=== PATIENT | female | born 1990 | race Caucasian/White ===

== ENCOUNTER 2018-03-20 18:00 | Observation (INO) | payer OTHER ==
[2018-03-20 18:29] LABS: URINE APPEARANCE Slightly; URINE BILIRUBIN 3+ (NEGATIVE); URINE COLOR Red; URINE GLUCOSE (UA) Negative (NEGATIVE); URINE KETONE 4+ (NEGATIVE); URINE LEUK ESTERASE Negative (NEGATIVE); URINE NITRITE Negative (NEGATIVE); URINE PROTEIN 2+ (NEGATIVE)
[2018-03-20 18:37] LABS: HCG,QUALITATIVE URINE Negative
[2018-03-20 18:46] LABS: URINE RBC 0-2 /hpf (0-3)
[2018-03-20 18:47] LABS: EPI CELLS 3+ /HPF
[2018-03-20] MEDS ORDERED: SODIUM CHLORIDE 1,000 ML IV ONE (19:30)
[2018-03-20] MEDS ORDERED: KETOROLAC TROMETHAMINE 30 MG/1 ML VIAL IVPUSH ONE (19:30)
[2018-03-20] MEDS ORDERED: ONDANSETRON 4 MG/2 ML VIAL IVPB ONE (19:30)
--- NOTE | 2018-03-20 19:31 | PDOC ---
History of Present Illness - General History Source: Patient Exam Limitations: No Limitations - History of Present Illness Initial Comments: 03/20/18 19:44 The patient is a 27 year old female with a significant PMH of Crohn's disease and anxiety disorder who presents to the emergency department with complaints of nausea for about 1 week. The patient also reports some lower abdominal pain and discomfort with her nausea. She states that she is unable to keep any liquid or solid foods down. She also reports some associated fevers ( highest of 102 3 days ago, measured at home). The patient states that her symptoms are similar to her Crohn's flare up in terms of pain but not her nausea and vomiting. She reports that her menstrual period is usually irregular and her lmp was september 2015. She's states that her last Crohn's flare up was 2015 as well. The patient denies any other symptoms. She denies any chills, diarrhea, constipation or urinary symptoms. She denies any chest pain, shortness of breath , headache or dizziness. The patient denies any other complaints. PAST MEDICAL HISTORY: Crohn's disease, anxiety disorder. PAST SURGICAL HISTORY: no significant history FAMILY HISTORY: no pertinent history SOCIAL HISTORY: Pt lives with family and is employed. MEDICATIONS: lexapro (40mg), Xanax (every 6 hours), Zofran (for anxiety) ALLERGIES: As per nursing notes General: (+)fever. No chills, no weakness, no weight loss HEENT: No change in vision. No sore throat,. No ear pain CardioVascular: No chest pain or shortness of breath Respiratory:No cough, or wheezing. Gastrointestinal: (+)nausea, vomiting, abdominal pain. no diarrhea or constipation, No rectal bleeding Genitourinary: No dysuria, hematuria, or frequency Musculoskeletal: No joint or muscle pain or swelling Neurologic: No headache, vertigo, dizziness or loss of consciousness Psychiatric: nor depression Skin: No rashes or easy bruising Endocrine: no increased thirst or abnormal weight change Allergic: no skin or latex allergy All other systems reviewed and normal General: Well-nourished well-developed individual, no acute distress HEENT: Throat: Normal, tonsils normal, no erythema or exudate Neck: Supple, no meningeal signs, no lymphadenopathy Eyes::Pupils equal reactive and round, extraocular motion intact Chest: Nontender to palpation Cardiac: S1-S2 normal, regular rate and rhythm, no murmurs rubs or gallops Respiratory: Lungs clear to auscultation bilateral Abdomen: (+)tender to palpation to RUQ, questionable mild rebound. No guarding. nondistended, normal bowel sounds. Extremities: Warm, dry, no cyanosis, clubbing, or edema Skin: No rashes Neuro: Alert and oriented x3, nonfocal exam, grossly intact, normal gait Psych: Normal mood and affect Documentation prepared by Nita Gatica, acting as medical staff manager for Aubrey Corado MD. 03/20/18 19:59 <Nita Gatica - Last Filed: 03/20/18 19:59> - General History Source: Patient Exam Limitations: No Limitations - History of Present Illness Initial Comments: 03/20/18 20:00 A portion of this note was documented by scribe services under my direction. I have reviewed the details of the note, within reason, and agree with the documentation. The case summary and management plan written by me. Medical decision making: This is a 27-year-old female who comes in complaining of upper abdominal pain, fever 3 days ago, nausea vomiting and dehydration. Patient has history significant for Crohn's disease, on my exam patient is tender right upper quadrant. Well obtain workup to rule out gallstones, CBC, comp, lipase, gallbladder ultrasound ordered and patient medicated with Zofran, Toradol and given IV fluids 03/20/18 22:11 Patient's ultrasound was negative for any acute gallbladder pathology Patient continues to be able to not tolerate by mouth's and feels nauseous in spite of Zofran and Reglan. Patient M enzymes are moderately elevated. Will admit patient to a observation bed for hepatitis. <Aubrey Corado I - Last Filed: 03/20/18 22:21> - General Chief Complaint: Nausea/Vomiting Stated Complaint: N/V/ PAIN Time Seen by Provider: 03/20/18 19:18 Past History <Nita Gatica - Last Filed: 03/20/18 19:59> - Past Medical History Anemia: No Asthma: No Cancer: No Cardiac Disorders: No CVA: No COPD: No CHF: No Dementia: No Diabetes: No GI Disorders: Yes (CROHNS, NAUSEA, GASTRIC POLYP) Disorders: No HTN: No Hypercholesterolemia: No Liver Disease: No Psychiatric Problems: Yes (ANXIETY,PANIC D/O, DEPRESSION, ANXIETY) Seizures: No Thyroid Disease: No - Surgical History Abdominal Surgery: Yes (abdominal wall cyst removed) Appendectomy: No Cardiac Surgery: No Cholecystectomy: No Lung Surgery: No Neurologic Surgery: No Orthopedic Surgery: No - Immunization History Immunization Up to Date: Yes - Suicide/Smoking/Psychosocial Hx Smoking Status: No Smoking History: Never smoked Have you smoked in the past 12 months: No Number of Cigarettes Smoked Daily: 0 Hx Alcohol Use: No Drug/Substance Use Hx: No Substance Use Type: None Hx Substance Use Treatment: No <Aubrey Corado I - Last Filed: 03/20/18 22:21> - Past Medical History Allergies/Adverse Reactions: Allergies Allergy/AdvReac Type Severity Reaction Status Date / Time nortriptyline [Nortriptyline] AdvReac Intermediate Verified 03/20/18 18:02 diphenhydramine HCl AdvReac Verified 03/20/18 18:02 [From [facility]] Home Medications: Ambulatory Orders Aspirin [ASA -] 81 mg PO DAILY 03/20/18 Bupropion HCl [Wellbutrin -] 300 mg PO DAILY 03/20/18 Levothyroxine Sodium [Synthroid] 112 mcg PO DAILY 03/20/18 Metoprolol Tartrate 50 mg PO DAILY 03/20/18 Metoprolol Tartrate 100 mg PO DAILY 03/20/18 Abd/GI Specific PMHX - Complaint Specific PMHX Colitis: Yes Diverticulitis: No Gall Bladder Disease: No GERD: Yes Hepatitis: No Irritable Bowel Synd (IBS): Yes GI Ulcer Disease: Yes <Aubrey Corado I - Last Filed: 03/20/18 22:21> *Physical Exam - Vital Signs Last Vital Signs Temp Pulse Resp BP Pulse Ox 99.1 F 128 H 18 112/73 98 03/20/18 18:02 03/20/18 18:02 03/20/18 18:02 03/20/18 18:02 03/20/18 18:02 <Nita Gatica - Last Filed: 03/20/18 19:59> - Vital Signs Last Vital Signs Temp Pulse Resp BP Pulse Ox 99.1 F 128 H 18 112/73 98 03/20/18 18:02 03/20/18 18:02 03/20/18 18:02 03/20/18 18:02 03/20/18 18:02 <Aubrey Corado I - Last Filed: 03/20/18 22:21> ED Treatment Course - LABORATORY CBC & Chemistry Diagram: 03/20/18 19:44 - ADDITIONAL ORDERS Additional order review: Laboratory Results 03/20/18 18:27 Urine Color Red Urine Appearance Slightly Urine pH 6.0 Ur Specific [place] >= 1.030 Urine Protein 2+ H Urine Glucose (UA) Negative Urine Ketones 4+ H Urine Blood Negative Urine Nitrite Negative Urine Bilirubin 3+ H Urine Urobilinogen 2.0 H Ur Leukocyte Esterase Negative Urine RBC 0-2 Urine WBC 2-5 Ur Epithelial Cells 3+ Urine HCG, Qual Negative <Nita Gatica - Last Filed: 03/20/18 19:59> - LABORATORY CBC & Chemistry Diagram: 03/20/18 19:44 03/20/18 19:44 - ADDITIONAL ORDERS Additional order review: Laboratory Results 03/20/18 18:27 Urine Color Red Urine Appearance Slightly Urine pH 6.0 Ur Specific [place] >= 1.030 Urine Protein 2+ H Urine Glucose (UA) Negative Urine Ketones 4+ H Urine Blood Negative Urine Nitrite Negative Urine Bilirubin 3+ H Urine Urobilinogen 2.0 H Ur Leukocyte Esterase Negative Urine RBC 0-2 Urine WBC 2-5 Ur Epithelial Cells 3+ Urine HCG, Qual Negative <Aubrey Corado I - Last Filed: 03/20/18 22:21> *DC/Admit/Observation/Transfer <Nita Gatica - Last Filed: 03/20/18 19:59> - Discharge Dispostion Decision to Admit order: Yes <Aubrey Corado I - Last Filed: 03/20/18 22:21> Diagnosis at time of Disposition: Hepatitis - Discharge Dispostion Condition at time of disposition: Stable
[2018-03-20] MEDS ORDERED: KETOROLAC TROMETHAMINE 30 MG/1 ML VIAL ONE (19:46)
[2018-03-20] MEDS ORDERED: ONDANSETRON 4 MG/2 ML VIAL ONE (19:46)
[2018-03-20 20:02] LABS: HEMATOCRIT 44.5 % (32.4-45.2); HEMOGLOBIN 14.9 GM/dl (10.7-15.3); MCH 28.8 pg (25.7-33.7); MCHC 33.4 g/dl (32.0-36.0); MEAN CELL VOLUME 86.2 fl (80-96); MEAN PLT VOLUME 8.6 fl (7.5-11.1); PLATELET COUNT 70 K/MM3 (134-434); RBC 5.16 M/mm3 (3.60-5.2); RDW 12.9 % (11.6-15.6); WHITE BLOOD COUNT 9.9 K/mm3 (4.0-10.8)
[2018-03-20 20:11] LABS: ALBUMIN 4.2 g/dl (3.5-5.0); ALK PHOS 281 U/L (32-92); ANION GAP 15 MMOL/L (8-16); BLOOD UREA NITROGEN 22 mg/dl (7-18); CALCIUM 8.8 mg/dl (8.4-10.2); CHLORIDE 97 mmol/L (98-107); CO2 24 mmol/L (22-28); CREATININE 0.7 mg/dl (0.6-1.3); GLUCOSE,RANDOM 85 mg/dl (74-106); POTASSIUM 3.2 mmol/L (3.5-5.1); SGOT/AST 108 U/L (10-42); SGPT/ALT 138 U/L (10-40); SODIUM 136 mmol/L (136-145); TOT PROT 8.7 g/dl (6.4-8.3)
[2018-03-20 20:55] LABS: PLATELET ESTIMATE DECREASED
[2018-03-20] MEDS ORDERED: morphine CARPU-JECT 4 MG/1 ML DISP.SYRIN IVPUSH ONE (21:27)
[2018-03-20] MEDS ORDERED: METOCLOPRAMIDE HCL INJECTION 10 MG/2 ML VIAL IVPUSH ONE (21:29)
[2018-03-20] MEDS ORDERED: morphine SULFATE 4 MG/ML VIAL ONE (21:41)
[2018-03-20 21:46] LABS: LIPASE 143 U/L (73-393)
[2018-03-21 00:10] VITALS: BMI 38.9
--- NOTE | 2018-03-21 00:23 | HP ---
CHIEF COMPLAINT: nausea, abd pain PCP: Jose HISTORY OF PRESENT ILLNESS: This is a 27 year old female with a past medical hisotyr of Crohn's disease and anxiety who presented to the ED with nausea and associated lower abdominal pain x 6 days. Pt reports that her pain is similar to her usual Crohn's flare but is not typically associated with N/V. Her last Crohn's flare was 2015. Pt reports similar episode nausea and vomiting 2 months ago with hospitalization at [facility] for a few days, but they did not find anything wrong. ER course was notable for: (1) WBC 9.9 (2) K 3.2 (3) elevated LFTs AST 108, ALT 138, alk phos 281 Recent Travel: [place] in January PAST MEDICAL HISTORY: Crohn's anxiety PCOS PAST SURGICAL HISTORY: pt denies Social History: Smoking: pt denies Alcohol: occ Drugs: pt denies Family History: mother with thyroid disease father with h/o pancreatitis, HTN, HLD sister with h/o anorexia Allergies nortriptyline [Nortriptyline] Adverse Reaction (Intermediate, Verified 03/20/18 18:02) drowsiness and weight gain diphenhydramine HCl [From Benadryl] Adverse Reaction (Verified 03/20/18 18:02) palpitations HOME MEDICATIONS: 3 Medication Instructions Recorded Alprazolam [Xanax] 1 mg PO QID 03/21/18 Escitalopram Oxalate [Lexapro -] 40 mg PO DAILY 03/21/18 Loratadine [Claritin] 10 mg PO PRN 03/21/18 Ondansetron HCl [Zofran] 4 mg PO TID PRN 03/21/18 REVIEW OF SYSTEMS CONSTITUTIONAL: Absent: fever, chills, diaphoresis, generalized weakness, malaise, loss of appetite, weight change HEENT: Absent: rhinorrhea, nasal congestion, throat pain, throat swelling, difficulty swallowing, mouth swelling, ear pain, eye pain, visual changes CARDIOVASCULAR: Absent: chest pain, syncope, palpitations, irregular heart rate, lightheadedness , peripheral edema RESPIRATORY: Absent: cough, shortness of breath, dyspnea with exertion, orthopnea, wheezing, stridor, hemoptysis GASTROINTESTINAL: Present: abdominal pain, nausea, vomiting Absent: abdominal distension, diarrhea, constipation, melena, hematochezia GENITOURINARY: Absent: dysuria, frequency, urgency, hesitancy, hematuria, flank pain, genital pain MUSCULOSKELETAL: Absent: myalgia, arthralgia, joint swelling, back pain, neck pain SKIN: Absent: rash, itching, pallor HEMATOLOGIC/IMMUNOLOGIC: Absent: easy bleeding, easy bruising, lymphadenopathy, frequent infections ENDOCRINE: Absent: unexplained weight gain, unexplained weight loss, heat intolerance, cold intolerance NEUROLOGIC: Absent: headache, focal weakness or paresthesias, dizziness, unsteady gait, seizure, mental status changes, bladder or bowel incontinence PSYCHIATRIC: Absent: anxiety, depression, suicidal or homicidal ideation, hallucinations. PHYSICAL EXAMINATION Vital Signs - 24 hr 3 03/20/18 03/20/18 18:02 23:45 Temperature 99.1 F 98.0 F Pulse Rate 128 H 96 H Respiratory 18 19 Rate Blood Pressure 112/73 117/67 O2 Sat by Pulse 98 97 Oximetry (%) GENERAL: Awake, alert, and fully oriented, in no acute distress. HEAD: Normal with no signs of trauma. EYES: Pupils equal, round and reactive to light, extraocular movements intact, sclera anicteric, conjunctiva clear. No lid lag. EARS, NOSE, THROAT: Ears normal, nares patent, oropharynx clear without exudates. Moist mucous membranes. NECK: Normal range of motion, supple without lymphadenopathy, JVD, or masses. LUNGS: Breath sounds equal, clear to auscultation bilaterally. No wheezes, and no crackles. No accessory muscle use. HEART: Regular rate and rhythm, normal S1 and S2 without murmur, rub or gallop. ABDOMEN: Obese, soft, nontender, not distended, normoactive bowel sounds, no guarding, no rebound, no masses. No hepatomegaly or splenomegaly. MUSCULOSKELETAL: Normal range of motion at all joints. No bony deformities or tenderness. No CVA tenderness. UPPER EXTREMITIES: 2+ pulses, warm, well-perfused. No cyanosis. No clubbing. No peripheral edema. LOWER EXTREMITIES: 2+ pulses, warm, well-perfused. No calf tenderness. No peripheral edema. NEUROLOGICAL: Cranial nerves II-XII intact. Normal speech. Normal gait. PSYCHIATRIC: Cooperative. Good eye contact. Appropriate mood and affect. SKIN: Warm, dry, normal turgor, no rashes or lesions noted, normal capillary refill. Laboratory Results - last 24 hr 3 1003/20/18 03/20/18 18:27 19:44 19:44 WBC 9.9 RBC 5.16 Hgb 14.9 Hct 44.5 MCV 86.2 MCH 28.8 MCHC 33.4 RDW 12.9 Plt Count 70 L MPV 8.6 Absolute Neuts (auto) 3.2 Neutrophils % No Result Required. Neutrophils % (Manual) 35.0 L Lymphocytes % No Result Required. Lymphocytes % (Manual) 45.0 H Monocytes % (Manual) 8 Platelet Estimate Decreased Sodium 136 Potassium 3.2 L D Chloride 97 L Carbon Dioxide 24 Anion Gap 15 BUN 22 H Creatinine 0.7 Creat Clearance w eGFR > 60 Random Glucose 85 Calcium 8.8 Total Bilirubin 2.0 H AST 108 H D ALT 138 H D Alkaline Phosphatase 281 H Creatine Kinase 29 Troponin I 0.03 Total Protein 8.7 H Albumin 4.2 Lipase 143 Urine Color Red Urine Appearance Slightly Urine pH 6.0 Ur Specific [place] >= 1.030 Urine Protein 2+ H Urine Glucose (UA) Negative Urine Ketones 4+ H Urine Blood Negative Urine Nitrite Negative Urine Bilirubin 3+ H Urine Urobilinogen 2.0 H Ur Leukocyte Esterase Negative Urine RBC 0-2 Urine WBC 2-5 Ur Epithelial Cells 3+ Urine HCG, Qual Negative ASSESSMENT/PLAN: 27yF with PMH Crohn's, PCOS, anxiety who presented to the ED with abdominal pain , N/V. intractable N/V - pt still feeling nauseas despite receipt of zofran and metoclopramide in ED , will try phenergan IM - CT with fatty liver, no s/s Crohn's flare elevated LFTs - unclear etiology ? r/t fatty liver - repeat in am - if not improving, GI consult Crohn's - does not appear to be in flare - cont supportive care hypokalemia repleted with 20mg po, repeat at 4am, draw bmp in am Anxiety - cont home meds: lexapro, xanax DVT PPX - heparin deferred, expected LOS less than 48h FEN - tolerating sips of po, monitor off IV fluids - BMP in am - clear liquid diet in am Dispo: pt currently requires further observation for management of her emergent condition. Visit type - Emergency Visit Emergency Visit: Yes ED Registration Date: 03/20/18 Care time: The patient presented to the Emergency Department on the above date and was hospitalized for further evaluation of their emergent condition. - New Patient This patient is new to me today: Yes Date on this admission: 03/20/18 - Critical Care Critical Care patient: No
[2018-03-21] MEDS ORDERED: POTASSIUM CHLORIDE TABS 20 MEQ TABLET.ER (FP) PO ONE ×2 (00:27→06:00)
[2018-03-21] MEDS: ALPRAZolam 1 MG TABLET PO SCH ×5 (01:00→23:16)
[2018-03-21] MEDS: NYSTATIN POWDER 100,000 UNITS/GM - 15 GM TOPICAL POWDER TP SCH ×2 (02:02→09:32)
[2018-03-21 07:55] LABS: HEMOGLOBIN 12.1 GM/dl (10.7-15.3); MCH 29.1 pg (25.7-33.7); MCHC 33.5 g/dl (32.0-36.0); MEAN CELL VOLUME 86.9 fl (80-96); MEAN PLT VOLUME 8.2 fl (7.5-11.1); RBC 4.14 M/mm3 (3.60-5.2); RDW 13.1 % (11.6-15.6); WHITE BLOOD COUNT 6.7 K/mm3 (4.0-10.8)
[2018-03-21 08:16] LABS: ADD RBC MORPHOLOGY YES
--- NOTE | 2018-03-21 08:23 | PN ---
Physical Exam: SUBJECTIVE: Patient seen and examined, Patient reports nausea With decreased appetite OBJECTIVE:Patient is a 27-year-old female Past medical history of Crohn's disease and anxiety patient was admitted From the emergency department to observation for transaminitis and vomiting Vital Signs Period Temp Pulse Resp BP Sys/Peterson Pulse Ox Last 24 Hr 97.7 F-99.1 F 76-128 18-19 112-119/61-73 97-98 GENERAL: obeseThe patient is awake, alert, and fully oriented, in no acute distress. HEAD: Normal with no signs of trauma. EYES: PERRL, extraocular movements intact, sclera anicteric, conjunctiva clear. No ptosis. ENT: Ears normal, nares patent, oropharynx clear without exudates, moist mucous membranes. NECK: Trachea midline, full range of motion, supple. LUNGS: Breath sounds equal, clear to auscultation bilaterally, no wheezes, no crackles, no accessory muscle use. HEART: Regular rate and rhythm, S1, S2 without murmur, rub or gallop. ABDOMEN: Soft, Right upper quadrant tenderness, nondistended, normoactive bowel sounds, no guarding, no rebound, + hepatosplenomegaly, no masses. EXTREMITIES: 2+ pulses, warm, well-perfused, no edema. NEUROLOGICAL: Cranial nerves II through XII grossly intact. Normal speech, gait not observed. PSYCH: Normal mood, normal affect. SKIN: Warm, dry, normal turgor, no rashes or lesions noted Laboratory Results - last 24 hr 03/20/18 03/20/18 03/20/18 18:27 19:44 19:44 WBC 9.9 RBC 5.16 Hgb 14.9 Hct 44.5 MCV 86.2 MCH 28.8 MCHC 33.4 RDW 12.9 Plt Count 70 L MPV 8.6 Absolute Neuts (auto) 3.2 Neutrophils % No Result Required. Neutrophils % (Manual) 35.0 L Lymphocytes % No Result Required. Lymphocytes % (Manual) 45.0 H Monocytes % (Manual) 8 Platelet Estimate Decreased Sodium 136 Potassium 3.2 L D Chloride 97 L Carbon Dioxide 24 Anion Gap 15 BUN 22 H Creatinine 0.7 Creat Clearance w eGFR > 60 Random Glucose 85 Calcium 8.8 Total Bilirubin 2.0 H AST 108 H D ALT 138 H D Alkaline Phosphatase 281 H Creatine Kinase Troponin I Total Protein 8.7 H Albumin 4.2 Lipase 143 Urine Color Red Urine Appearance Slightly Urine pH 6.0 Ur Specific [place] >= 1.030 Urine Protein 2+ H Urine Glucose (UA) Negative Urine Ketones 4+ H Urine Blood Negative Urine Nitrite Negative Urine Bilirubin 3+ H Urine Urobilinogen 2.0 H Ur Leukocyte Esterase Negative Urine RBC 0-2 Urine WBC 2-5 Ur Epithelial Cells 3+ Urine HCG, Qual Negative 03/20/18 03/20/18 03/21/18 19:44 19:44 07:25 WBC 6.7 RBC 4.14 Hgb 12.1 Hct 36.0 D MCV 86.9 MCH 29.1 MCHC 33.5 RDW 13.1 Plt Count 44 L* MPV 8.2 Absolute Neuts (auto) 1.6 Neutrophils % No Result Required. Neutrophils % (Manual) Lymphocytes % No Result Required. Lymphocytes % (Manual) Monocytes % (Manual) Platelet Estimate Sodium Potassium Chloride Carbon Dioxide Anion Gap BUN Creatinine Creat Clearance w eGFR Random Glucose Calcium Total Bilirubin AST ALT Alkaline Phosphatase Creatine Kinase 29 Troponin I 0.03 Total Protein Albumin Lipase Urine Color Urine Appearance Urine pH Ur Specific [place] Urine Protein Urine Glucose (UA) Urine Ketones Urine Blood Urine Nitrite Urine Bilirubin Urine Urobilinogen Ur Leukocyte Esterase Urine RBC Urine WBC Ur Epithelial Cells Urine HCG, Qual Active Medications Generic Name Dose Route Start Last Admin Trade Name Freq PRN Reason Stop Dose Admin Alprazolam 1 mg 03/21/18 00:45 03/21/18 06:35 Xanax PO 1 mg Q6HPO AD Administration Escitalopram Oxalate 40 mg 03/21/18 10:00 Lexapro - PO DAILY AD Nystatin 1 applic 03/21/18 01:30 03/21/18 02:02 Nystop Powder - TP 1 applic DAILY AD Administration Promethazine HCl 25 mg 03/21/18 00:24 Phenergan Injection - IM Q6H PRN NAUSEA AND/OR VOMITING imaging Chest CT abdomen and pelvis with contrast no acute pathology, diffuse hepatic steatosis us of abd: diffuse hepatic steatosis, 0.5cm no cbd dilation ASSESSMENT/PLAN: i1) GI intractable N/V - continue phenergan IM, no evidence of Crohn's flare on the CT scan Transaminitis -liver enzymes trending downward, CT scan of abdomen and ultrasound reviewed, hepatitis panel ordered - Appreciated input of GI Crohn's - continue supportive care Anxiety - cont home meds: lexapro, xanax DVT PPX - heparin deferred, expected LOS less than 48h FEN - tolerating sips of po, monitor off IV fluids - BMP in am - clear liquid diet in am Dispo: pt currently requires further observation for management of her emergent condition. Visit type - Emergency Visit Emergency Visit: Yes ED Registration Date: 03/20/18 Care time: The patient presented to the Emergency Department on the above date and was hospitalized for further evaluation of their emergent condition. - New Patient This patient is new to me today: No - Critical Care Critical Care patient: No - Discharge Referral Referred to [facility] Med [facility].C[facility] No
[2018-03-21 08:29] LABS: ANION GAP 10 MMOL/L (8-16); BLOOD UREA NITROGEN 17 mg/dl (7-18); CALCIUM 7.9 mg/dl (8.4-10.2); CHLORIDE 107 mmol/L (98-107); CO2 24 mmol/L (22-28); GLUCOSE,RANDOM 81 mg/dl (74-106); MAGNESIUM 2.1 mg/dL (1.8-2.4); PHOSPHOROUS 2.7 mg/dl (2.5-4.6); POTASSIUM 3.5 mmol/L (3.5-5.1); SODIUM 141 mmol/L (136-145)
[2018-03-21 08:32] LABS: ALBUMIN 3.2 g/dl (3.5-5.0); BILIRUBIN,DIRECT 0.4 mg/dL (0.0-0.3); BILIRUBIN,TOTAL 1.5 mg/dl (0.2-1.0); TOT PROT 6.8 g/dl (6.4-8.3)
[2018-03-21] MEDS: PROMETHAZINE HCL 25 MG/1 ML VIAL IM PRN ×3 (08:33→21:42)
[2018-03-21 08:40] LABS: CREATININE < 0.6 mg/dl (0.6-1.3)
[2018-03-21] MEDS ORDERED: PT OWN MED DRAWER 7, Y5N ONE (09:27)
[2018-03-21] MEDS: PANTOPRAZOLE SODIUM 40 MG VIAL IVPUSH SCH (09:30)
[2018-03-21] MEDS: ESCITALOPRAM OXALATE 20 MG TABLET (FP) PO SCH (09:32)
[2018-03-21] MEDS: SODIUM CHLORIDE 0.45%/POT 20 MEQ/1,000 ML INFUS.BAG IV SCH (12:30)
[2018-03-21 13:02] LABS: PLATELET COUNT 44 K/MM3 (134-434)
[2018-03-21 13:03] LABS: PLATELET ESTIMATE DECREASED
[2018-03-21] MEDS ORDERED: traMADol HCL 50 MG TABLET PO ONE (17:00)
[2018-03-22] MEDS: ALPRAZolam 1 MG TABLET PO SCH ×4 (05:55→23:37)
[2018-03-22 08:10] LABS: HBSAG SCREEN Negative (Negative); HEP B CORE AB, TOT Negative (Negative)
[2018-03-22 08:24] LABS: BASO % 0.1 % (0-2.0); EOS % 0.3 % (0-4.5); HEMATOCRIT 37.1 % (32.4-45.2); HEMOGLOBIN 12.3 GM/dl (10.7-15.3); LYMPH % 59.8 % (8-40); MCH 28.7 pg (25.7-33.7); MCHC 33.1 g/dl (32.0-36.0); MEAN CELL VOLUME 86.8 fl (80-96); MEAN PLT VOLUME 8.4 fl (7.5-11.1); MONO % 17.4 % (3.8-10.2); NEUT % 22.4 % (42.8-82.8); PLATELET COUNT 59 K/MM3 (134-434); RBC 4.28 M/mm3 (3.60-5.2); RDW 13.3 % (11.6-15.6); WHITE BLOOD COUNT 8.5 K/mm3 (4.0-10.8)
[2018-03-22 08:37] LABS: ALBUMIN 3.4 g/dl (3.5-5.0); ALK PHOS 221 U/L (32-92); ANION GAP 7 MMOL/L (8-16); BILIRUBIN,TOTAL 1.6 mg/dl (0.2-1.0); BLOOD UREA NITROGEN 12 mg/dl (7-18); CHLORIDE 105 mmol/L (98-107); CO2 25 mmol/L (22-28); CREATININE 0.6 mg/dl (0.6-1.3); GLUCOSE,RANDOM 83 mg/dl (74-106); MAGNESIUM 1.9 mg/dL (1.8-2.4); PHOSPHOROUS 1.7 mg/dl (2.5-4.6); POTASSIUM 3.8 mmol/L (3.5-5.1); SGOT/AST 83 U/L (10-42); SGPT/ALT 104 U/L (10-40); SODIUM 137 mmol/L (136-145); TOT PROT 7.1 g/dl (6.4-8.3)
[2018-03-22] MEDS ORDERED: MAGNESIUM SULF 50% (8.12 MEQ/2 ML-1 GM VIAL) IVPB ONE (08:43)
[2018-03-22] MEDS ORDERED: POTASSIUM PHOSPHATE 21 MM in SODIUM CHLORIDE 250 ML IVPB ONE (08:45)
--- NOTE | 2018-03-22 09:02 | PN ---
Physical Exam: SUBJECTIVE: Patient seen and examined, not tolerating clear liquids reports nausea after drinking apple juice OBJECTIVE:Patient is a 27-year-old female Past medical history of Crohn's disease and anxiety patient was admitted From the emergency department to observation for transaminitis, thrombocytopenia, and vomiting Vital Signs Period Temp Pulse Resp BP Sys/Peterson Pulse Ox Last 24 Hr 98.2 F-98.9 F 89-101 16-18 113-121/60-68 95-98 GENERAL: obese, the patient is awake, alert, and fully oriented, in no acute distress. HEAD: Normal with no signs of trauma. EYES: PERRL, extraocular movements intact, sclera anicteric, conjunctiva clear. No ptosis. ENT: Ears normal, nares patent, oropharynx clear without exudates, moist mucous membranes. NECK: Trachea midline, full range of motion, supple. LUNGS: Breath sounds equal, clear to auscultation bilaterally, no wheezes, no crackles, no accessory muscle use. HEART: Regular rate and rhythm, S1, S2 without murmur, rub or gallop. ABDOMEN: Soft, no rebound tenderness, nondistended, normoactive bowel sounds, no guarding, no rebound, mild hepatosplenomegaly, no masses. EXTREMITIES: 2+ pulses, warm, well-perfused, no edema. NEUROLOGICAL: Cranial nerves II through XII grossly intact. Normal speech, gait not observed. PSYCH: Normal mood, normal affect. SKIN: Warm, dry, normal turgor, no rashes or lesions noted Laboratory Results - last 24 hr 03/21/18 03/21/18 03/22/18 07:25 12:35 08:00 WBC 8.5 RBC 4.28 Hgb 12.3 Hct 37.1 MCV 86.8 MCH 28.7 MCHC 33.1 RDW 13.3 Plt Count 44 L* 59 L MPV 8.4 Absolute Neuts (auto) 1.9 Neutrophils % 22.4 L Neutrophils % (Manual) 30.0 L Lymphocytes % 59.8 H Lymphocytes % (Manual) 57.0 H Monocytes % 17.4 H Monocytes % (Manual) 8 Eosinophils % 0.3 Basophils % 0.1 Platelet Estimate Decreased Sodium Potassium Chloride Carbon Dioxide Anion Gap BUN Creatinine Creat Clearance w eGFR Random Glucose Calcium Phosphorus Magnesium Total Bilirubin AST ALT Alkaline Phosphatase Total Protein Albumin Hepatitis A Ab Total Negative Hep Bs Antigen Negative Hep Bs Antibody Reactive Hep B Core Total Ab Negative 03/22/18 08:00 WBC RBC Hgb Hct MCV MCH MCHC RDW Plt Count MPV Absolute Neuts (auto) Neutrophils % Neutrophils % (Manual) Lymphocytes % Lymphocytes % (Manual) Monocytes % Monocytes % (Manual) Eosinophils % Basophils % Platelet Estimate Sodium 137 Potassium 3.8 Chloride 105 Carbon Dioxide 25 Anion Gap 7 L BUN 12 Creatinine 0.6 Creat Clearance w eGFR > 60 Random Glucose 83 Calcium 8.0 L Phosphorus 1.7 L D Magnesium 1.9 Total Bilirubin 1.6 H AST 83 H ALT 104 H Alkaline Phosphatase 221 H D Total Protein 7.1 Albumin 3.4 L Hepatitis A Ab Total Hep Bs Antigen Hep Bs Antibody Hep B Core Total Ab Active Medications Generic Name Dose Route Start Last Admin Trade Name Freq PRN Reason Stop Dose Admin Alprazolam 1 mg 03/21/18 00:45 03/22/18 05:55 Xanax PO 1 mg Q6HPO AD Administration Escitalopram Oxalate 40 mg 03/21/18 10:00 03/21/18 09:32 Lexapro - PO 40 mg DAILY AD Administration Potassium Chloride/Sodium Chloride 20 meq in 1,000 mls @ 83 mls/hr 03/21/18 12 :30 03/21/18 12:30 1/2ns+20meq Kcl IV 83 mls/hr ASDIR AD Administration Potassium Phosphate 21 mm/ 257 mls @ 62.5 mls/hr 03/22/18 08:45 Sodium Chloride IVPB 03/22/18 12:51 ONCE ONE Magnesium Sulfate/Dextrose 1 gm in 100 mls @ 100 mls/hr 03/22/18 09:30 Magnesium 1gm/D5w - IVPB 03/22/18 10:29 ONCE ONE Nystatin 1 applic 03/21/18 01:30 03/21/18 09:32 Nystop Powder - TP 1 applic DAILY AD Administration Pantoprazole Sodium 40 mg 03/21/18 10:00 03/21/18 09:30 Protonix Iv IVPUSH 40 mg DAILY AD Administration Promethazine HCl 25 mg 03/21/18 00:24 03/21/18 21:42 Phenergan Injection - IM 25 mg Q6H PRN Administration NAUSEA AND/OR VOMITING imaging Chest CT abdomen and pelvis with contrast no acute pathology, diffuse hepatic steatosis us of abd: diffuse hepatic steatosis, 0.5cm no cbd dilation ASSESSMENT/PLAN: i1) GI intractable N/V - continue phenergan IM, continue clear liquid diet, no evidence of Crohn's flare on the CT scan Transaminitis - slight elevation of liver enzymes, pending complete hepatitis panel, asif bar virus - Appreciated input of GI Crohn's - continue supportive care 2) psych Anxiety - cont home meds: lexapro, xanax 3) heme/onc thrombocytopenia - plts trending upward, close following DVT PPX - deferred secondary to thrombocytopenia FEN - BMP in am - continue clear liquid then advance as tolerated Dispo: pt currently requires further observation for management of her emergent condition. Visit type - Emergency Visit Emergency Visit: Yes ED Registration Date: 03/24/18 Care time: The patient presented to the Emergency Department on the above date and was hospitalized for further evaluation of their emergent condition. - New Patient This patient is new to me today: No - Critical Care Critical Care patient: No - Discharge Referral Referred to [facility] Med P.C.: No
[2018-03-22] MEDS: PROMETHAZINE HCL 25 MG/1 ML VIAL IM PRN ×2 (09:11→14:26)
[2018-03-22] MEDS: PANTOPRAZOLE SODIUM 40 MG VIAL IVPUSH SCH (09:11)
[2018-03-22] MEDS: ESCITALOPRAM OXALATE 20 MG TABLET (FP) PO SCH (09:12)
[2018-03-22] MEDS ORDERED: MAGNESIUM 1GM/D5W - 1 GM/100 ML IVPB IVPB ONE (09:30)
[2018-03-22] MEDS: NYSTATIN POWDER 100,000 UNITS/GM - 15 GM TOPICAL POWDER TP SCH (09:39)
[2018-03-22 10:35] LABS: AMYLASE 53 U/L (25-125); GAMMA GLUTAMYL TRANSPEPTIDASE 251 U/L (3-64)
[2018-03-22 12:30] LABS: LIPASE 232 U/L (73-393)
--- NOTE | 2018-03-22 12:35 | PN ---
Progress Note (short form) - Note Progress Note: Patient seen and consult dictated. 27 yo female with hx of anxiety, depression and ?? hx Crohn's disease. Admitted with N/V (similar to episode 2-3 months ago), Has no evidence of obstruction on CT scan and no evidence of gallstones/biliary obstruction. Does have abnormal LFTs ?acute vs chronic (?hx fatty liver disease) and low platelet count. Feels better today and is tolerating clear liquid diet, Normal WBC, Hgb and lytes. May have viral syndrome; less likely acute hepatitis. Could have steatohepatitis/fatty liver. Etiology of low platelet count unclear - has enlarged spleen on scan Consider Heme eval Obtain EBV titers PO as tolerated IBD panel Fecal calprotectin level (eval for ??Crohn's) INR (serum) If tolerating PO, can discharge with outpatient followup
[2018-03-22] MEDS: ACETAMINOPHEN 325 MG TABLET (FP) PO PRN (14:26)
[2018-03-22] MEDS: SODIUM CHLORIDE 0.45%/POT 20 MEQ/1,000 ML INFUS.BAG IV SCH ×2 (14:27→16:00)
[2018-03-23] MEDS: ALPRAZolam 1 MG TABLET PO SCH ×4 (05:46→23:26)
[2018-03-23] MEDS: ACETAMINOPHEN 325 MG TABLET (FP) PO PRN ×2 (06:32→17:09)
[2018-03-23] MEDS: PROMETHAZINE HCL 25 MG/1 ML VIAL IM PRN ×2 (06:37→17:08)
--- NOTE | 2018-03-23 08:50 | PN ---
Physical Exam: SUBJECTIVE: Patient seen and examined. Pt c/o intermittent RUQ/ lower abdominal pain, nausea and diarrhea x1, no hematochezia, no vomiting, cp,sob, palpitations or urinary symptoms. OBJECTIVE: Vital Signs Period Temp Pulse Resp BP Sys/Peterson Pulse Ox Last 24 Hr 98.1 F-100.4 F 58-109 17-19 99-125/50-77 94-98 GENERAL: The patient is awake, alert, and fully oriented, in no acute distress. HEAD: Normal with no signs of trauma. EYES: PERRL, extraocular movements intact, sclera anicteric, conjunctiva clear. No ptosis. ENT: Ears normal, nares patent, oropharynx clear without exudates, moist mucous membranes. NECK: Trachea midline, full range of motion, supple. LUNGS: Breath sounds equal, clear to auscultation bilaterally, no wheezes, no crackles, no accessory muscle use. HEART: Regular rate and rhythm, S1, S2 without murmur, rub or gallop. ABDOMEN: Soft, nontender, nondistended, normoactive bowel sounds, no guarding, no rebound, no hepatosplenomegaly, no masses. EXTREMITIES: 2+ pulses, warm, well-perfused, no edema. NEUROLOGICAL: Cranial nerves II through XII grossly intact. Normal speech, gait not observed. PSYCH: Normal mood, normal affect. SKIN: Warm, dry, normal turgor, no rashes or lesions noted Laboratory Results - last 24 hr 03/22/18 10:07 GGT 251 H Total Amylase 53 Lipase 232 Active Medications Generic Name Dose Route Start Last Admin Trade Name Freq PRN Reason Stop Dose Admin Acetaminophen 650 mg 03/22/18 14:03 03/23/18 06:32 Tylenol - PO 650 mg Q4H PRN Administration PAIN LEVEL 1-5 Alprazolam 1 mg 03/21/18 00:45 03/23/18 05:46 Xanax PO 1 mg Q6HPO AD Administration Escitalopram Oxalate 40 mg 03/21/18 10:00 03/22/18 09:12 Lexapro - PO 40 mg DAILY AD Administration Potassium Chloride/Sodium Chloride 20 meq in 1,000 mls @ 42 mls/hr 03/22/18 15 :07 03/22/18 16:00 1/2ns+20meq Kcl IV 42 mls/hr ASDIR AD Administration Nystatin 1 applic 03/21/18 01:30 03/22/18 09:39 Nystop Powder - TP 1 applic DAILY AD Administration Pantoprazole Sodium 40 mg 03/21/18 10:00 03/22/18 09:11 Protonix Iv IVPUSH 40 mg DAILY AD Administration Potassium Phos/Sodium Phos 1 packet 03/23/18 10:00 Phos-Nak Packet - PO BID AD Promethazine HCl 25 mg 03/21/18 00:24 03/23/18 06:37 Phenergan Injection - IM 25 mg Q6H PRN Administration NAUSEA AND/OR VOMITING *IMAGING Chest CT abdomen and pelvis with contrast no acute pathology, diffuse hepatic steatosis us of abd: diffuse hepatic steatosis, 0.5cm no cbd dilation ASSESSMENT/PLAN: *Intractable N/V, reports diarrhea today - Imaging ruled out acute pathology - GI following - abnormal LFT's - pending complete hepatitis panel, Jocelyn bar virus - low grade fever - UA/ cxr - Neg - ordered stool studies - diet clears la well, will advance diet as tolerated - will cont on PRN phenergan *Crohn's - continue supportive care *Anxiety -will cont home meds Lexapro,Xanax *Thrombocytopenia- ? viral etiology - plts 77>[id number] - Hem Dr. Graham consulted DVT PPX:Deferred secondary to thrombocytopenia FEN - On full liquid diet,will advance as tolerated - Low phosphorus - repalcement ordered Dispo: pt currently requires further observation for management of her emergent condition. Visit type - Emergency Visit Emergency Visit: Yes ED Registration Date: 03/20/18 Care time: The patient presented to the Emergency Department on the above date and was hospitalized for further evaluation of their emergent condition. - New Patient This patient is new to me today: Yes Date on this admission: 03/23/18 - Critical Care Critical Care patient: No
[2018-03-23 09:17] LABS: BASO % 0.1 % (0-2.0); EOS % 0.3 % (0-4.5); HEMATOCRIT 36.8 % (32.4-45.2); HEMOGLOBIN 12.1 GM/dl (10.7-15.3); LYMPH % 65.3 % (8-40); MCH 28.4 pg (25.7-33.7); MCHC 32.8 g/dl (32.0-36.0); MEAN CELL VOLUME 86.6 fl (80-96); MONO % 13.2 % (3.8-10.2); NEUT % 21.1 % (42.8-82.8); RBC 4.25 M/mm3 (3.60-5.2); RDW 13.4 % (11.6-15.6); WHITE BLOOD COUNT 8.4 K/mm3 (4.0-10.8)
[2018-03-23 09:21] LABS: PLATELET COUNT 57 K/MM3 (134-434)
[2018-03-23] MEDS: PANTOPRAZOLE SODIUM 40 MG VIAL IVPUSH SCH (09:27)
[2018-03-23] MEDS: ESCITALOPRAM OXALATE 20 MG TABLET (FP) PO SCH (09:27)
[2018-03-23] MEDS: NAPH,MB-DB/K PH,MBDB POWDER PACKET PO SCH ×2 (09:28→21:26)
[2018-03-23] MEDS: NYSTATIN POWDER 100,000 UNITS/GM - 15 GM TOPICAL POWDER TP SCH (09:28)
[2018-03-23 09:30] LABS: INR 1.36 (0.82-1.09); PROTHROMBIN TIME (PATIENT) 15.1 SEC (10.2-13.0)
[2018-03-23] MEDS: SODIUM CHLORIDE 0.45%/POT 20 MEQ/1,000 ML INFUS.BAG IV SCH (16:07)
--- NOTE | 2018-03-23 19:12 | CONSULT ---
Consult Consult Specialty:: heme Reason for Consultation:: low plt - History of Present Illness Chief Complaint: abd pain,n/v, fever History of Present Illness: 27 yof w h/o Crohns Dz, anxiety, hypothyroid, depression, PCOS adm w several days RUQ pain, n/v, and reported fever to 102.3 She was folld by Dr Marie Chery for Crohns till 2016. No current tx for this. Pt feels that current sxs similar to IBD flare, but usually not accompanied by n/v. Similar episode , hospitalized at [facility] and reportedly nothing found and sxs resolved. Has loose, formed stools. No new meds, herbal remedies, or supplements - History Source History Provided By: Patient, Family Member, Medical Record - Past Medical History Gastrointestinal: Yes: Inflamatory Bowel Disease Reproductive: Yes: Polycystic Ovary Syndrome ...LMP: 10/06/17 ...: No Psych: Yes: Anxiety, Depression Endocrine: Yes: Hypothyroidism - Alcohol/Substance Use Hx Alcohol Use: No - Smoking History Smoking history: Never smoked Have you smoked in the past 12 months: No Aproximately how many cigarettes per day: 0 Home Medications - Allergies Allergies/Adverse Reactions: Allergies Allergy/AdvReac Type Severity Reaction Status Date / Time nortriptyline [Nortriptyline] AdvReac Intermediate Verified 03/20/18 18:02 diphenhydramine HCl AdvReac Verified 03/20/18 18:02 [From Benadryl] - Home Medications Home Medications: Ambulatory Orders Alprazolam [Xanax] 1 mg PO QID 03/21/18 Escitalopram Oxalate [Lexapro -] 40 mg PO DAILY 03/21/18 Loratadine [Claritin] 10 mg PO DAILY PRN 03/21/18 Ondansetron HCl [Zofran] 4 mg PO TID PRN 03/21/18 Review of Systems - Review of Systems Constitutional: reports: Fever, Loss of Appetite Gastrointestinal: reports: Abdominal Pain, Nausea, Vomiting Physical Exam Vital Signs: Vital Signs Temperature 98.4 F 03/23/18 14:00 Pulse Rate 105 H 03/23/18 14:00 Respiratory Rate 18 03/23/18 14:00 Blood Pressure 128/73 03/23/18 14:00 O2 Sat by Pulse Oximetry (%) 94 L 03/23/18 14:00 Constitutional: Yes: No Distress Eyes: Yes: Conjunctiva Clear HENT: Yes: WNL Neck: Yes: Supple, Other (no neck or ax LA) Cardiovascular: Yes: Regular Rate and Rhythm, Tachycardia Respiratory: Yes: CTA Bilaterally Gastrointestinal: Yes: Soft, Abdomen, Obese (focal tenderness RUQ) Extremities: Yes: WNL Edema: No Neurological: Yes: WNL Labs: CBC, BMP 03/23/18 07:10 03/22/18 08:00 Assessment/Plan 27 yof w liver process, t-penia, fever - low gr in hosp; bkd CD P smear - no schistos, dec plts, no clumps noted, rare large plt 2014 nl plt count per data here recent counts at [facility] unknown T-penia related to current process, infectious/autoimmune? There is mild splenomeg, likely not accounting for depressed plt No evid for bleeding/consumption and microangiopathic process unlikely in view of sl elev direct bili/stable h/h/smear Monitor cbc, lfts GI following Consider ID eval Following w you
[2018-03-24] MEDS: ALPRAZolam 1 MG TABLET PO SCH ×4 (06:26→23:33)
[2018-03-24] MEDS: PROMETHAZINE HCL 25 MG/1 ML VIAL IM PRN (08:17)
[2018-03-24] MEDS: NYSTATIN POWDER 100,000 UNITS/GM - 15 GM TOPICAL POWDER TP SCH (10:02)
[2018-03-24] MEDS: ESCITALOPRAM OXALATE 20 MG TABLET (FP) PO SCH (10:02)
[2018-03-24] MEDS: PANTOPRAZOLE SODIUM 40 MG VIAL IVPUSH SCH (10:02)
[2018-03-24] MEDS: NAPH,MB-DB/K PH,MBDB POWDER PACKET PO SCH (10:02)
[2018-03-24] MEDS ORDERED: PROCHLORPERAZINE MALEATE 5 MG TABLET PO PRN (11:05)
[2018-03-24] MEDS ORDERED: ONDANSETRON 4 MG/2 ML VIAL IVPUSH PRN (11:05)
[2018-03-24] MEDS ORDERED: LORazepam 0.5 MG TABLET PO ONE (11:06)
[2018-03-24 11:30] LABS: ALBUMIN 3.1 g/dl (3.5-5.0); ALK PHOS 231 U/L (32-92); ANION GAP 6 MMOL/L (8-16); BILIRUBIN,TOTAL 1.2 mg/dl (0.2-1.0); BLOOD UREA NITROGEN 9 mg/dl (7-18); CALCIUM 8.3 mg/dl (8.4-10.2); CHLORIDE 103 mmol/L (98-107); CO2 27 mmol/L (22-28); CREATININE 0.5 mg/dl (0.6-1.3); GLUCOSE,RANDOM 104 mg/dl (74-106); PHOSPHOROUS 3.5 mg/dl (2.5-4.6); POTASSIUM 3.8 mmol/L (3.5-5.1); SGOT/AST 185 U/L (10-42); SGPT/ALT 184 U/L (10-40); SODIUM 136 mmol/L (136-145); TOT PROT 7.1 g/dl (6.4-8.3)
[2018-03-24 11:40] LABS: BASO % 0.2 % (0-2.0); EOS % 0.4 % (0-4.5); HEMATOCRIT 37.9 % (32.4-45.2); HEMOGLOBIN 12.4 GM/dl (10.7-15.3); LYMPH % 63.8 % (8-40); MCH 28.6 pg (25.7-33.7); MCHC 32.7 g/dl (32.0-36.0); MEAN CELL VOLUME 87.4 fl (80-96); MEAN PLT VOLUME 10.1 fl (7.5-11.1); MONO % 12.2 % (3.8-10.2); NEUT % 23.4 % (42.8-82.8); RBC 4.33 M/mm3 (3.60-5.2); RDW 13.6 % (11.6-15.6); WHITE BLOOD COUNT 8.5 K/mm3 (4.0-10.8)
[2018-03-24 11:44] LABS: PLATELET COUNT 79 K/MM3 (134-434)
--- NOTE | 2018-03-24 13:35 | PN ---
Progress Note, Physician Chief Complaint: pt seen and examined. She tolerated some po food today, however is acute nauseated. Denies abdominal pain, vomiting at this time - Current Medication List Current Medications: Active Medications Acetaminophen (Tylenol -) 650 mg PO Q4H PRN PRN Reason: PAIN LEVEL 1-5 Last Admin: 03/23/18 17:09 Dose: 650 mg Alprazolam (Xanax) 1 mg PO Q6HPO [facility] Last Admin: 03/24/18 12:17 Dose: 1 mg Escitalopram Oxalate (Lexapro -) 40 mg PO DAILY [facility] Last Admin: 03/24/18 10:02 Dose: 40 mg Potassium Chloride/Sodium Chloride (1/2ns+20meq Kcl) 20 meq in 1,000 mls @ 42 mls/hr IV ASDIR [facility] Last Admin: 03/23/18 16:07 Dose: 42 mls/hr Nystatin (Nystop Powder -) 1 applic TP DAILY [facility] Last Admin: 03/24/18 10:02 Dose: 1 applic Ondansetron HCl (Zofran Injection) 4 mg IVPUSH Q6H PRN PRN Reason: NAUSEA Pantoprazole Sodium (Protonix Iv) 40 mg IVPUSH DAILY [facility] Last Admin: 03/24/18 10:02 Dose: 40 mg Potassium Phos/Sodium Phos (Phos-Nak Packet -) 1 packet PO BID [facility] Last Admin: 03/24/18 10:02 Dose: 1 packet Prochlorperazine Maleate (Compazine -) 5 mg PO Q4H PRN PRN Reason: NAUSEA AND/OR VOMITING Promethazine HCl (Phenergan Injection -) 25 mg IM Q6H PRN PRN Reason: NAUSEA AND/OR VOMITING Last Admin: 03/24/18 08:17 Dose: 25 mg - Objective Vital Signs: Vital Signs Temperature 99.1 F 03/24/18 10:00 Pulse Rate 99 H 03/24/18 10:00 Respiratory Rate 19 03/24/18 10:00 Blood Pressure 113/67 03/24/18 10:00 O2 Sat by Pulse Oximetry (%) 95 03/24/18 06:00 Constitutional: Yes: Well Nourished Eyes: Yes: Conjunctiva Clear HENT: Yes: Atraumatic Neck: Yes: Supple Cardiovascular: Yes: Regular Rate and Rhythm, S1, S2 Respiratory: Yes: Regular, CTA Bilaterally Gastrointestinal: Yes: Normal Bowel Sounds, Soft Musculoskeletal: Yes: WNL Extremities: Yes: WNL Edema: No Neurological: Yes: Alert, Oriented, Cran Nerves II-XII Intact Labs: CBC, BMP 03/24/18 10:00 03/24/18 10:00 INR, PTT INR 1.36 (0.82-1.09) H 03/23/18 07:10 Impression/Plan Impression/Plan: Assessment: 27 year old female with h/o Crohns Dz, anxiety, hypothyroid, depression, PCOS adm w several days RUQ pain, n/v, and reported fever to 102.3 Plan: 1. Intractable N/V, low grade fever today ? viral - Very nauseous today - Obtain EKG,pt on lexapro - Start PRN zofran, compazine - Trial 0.25mg x1 prn ativan for nausea - LFTs increasing - Micro date neg thus far, no acute changes on CT scan - GI following - EBV pending - ID consulted - If febrile, will martins culture 2. Crohn's - Continue supportive care 3. Anxiety - Cont Lexapro, Xanax 4. Thrombocytopenia- ? viral etiology - Improved today - LD elevated, however lfts high - Elevated retic, no overt bleeding seen - Hem note reviewed and appreciated 5. DVT PPX - Deferred secondary to thrombocytopenia FEN - On full liquid diet,will advance as tolerated - Hypophosphatemia: resolved Visit type - Emergency Visit Emergency Visit: Yes ED Registration Date: 03/20/18 Care time: The patient presented to the Emergency Department on the above date and was hospitalized for further evaluation of their emergent condition. - New Patient This patient is new to me today: Yes Date on this admission: 03/24/18 - Critical Care Critical Care patient: No - Discharge Referral Referred to [facility] No
[2018-03-25] MEDS: ALPRAZolam 1 MG TABLET PO SCH ×2 (05:23→12:14)
[2018-03-25 08:22] LABS: HEMOGLOBIN 12.2 GM/dl (10.7-15.3); MCH 28.5 pg (25.7-33.7); MCHC 32.9 g/dl (32.0-36.0); MEAN CELL VOLUME 86.7 fl (80-96); MEAN PLT VOLUME 10.6 fl (7.5-11.1); PLATELET COUNT 78 K/MM3 (134-434); RBC 4.27 M/mm3 (3.60-5.2); RDW 13.7 % (11.6-15.6); WHITE BLOOD COUNT 9.1 K/mm3 (4.0-10.8)
[2018-03-25 08:43] LABS: ALK PHOS 235 U/L (32-92); ANION GAP 9 MMOL/L (8-16); BILIRUBIN,TOTAL 0.9 mg/dl (0.2-1.0); BLOOD UREA NITROGEN 10 mg/dl (7-18); CALCIUM 8.3 mg/dl (8.4-10.2); CHLORIDE 101 mmol/L (98-107); CO2 27 mmol/L (22-28); CREATININE 0.6 mg/dl (0.6-1.3); GLUCOSE,RANDOM 96 mg/dl (74-106); POTASSIUM 3.7 mmol/L (3.5-5.1); SGOT/AST 183 U/L (10-42); SGPT/ALT 197 U/L (10-40); SODIUM 137 mmol/L (136-145); TOT PROT 7.1 g/dl (6.4-8.3)
[2018-03-25] MEDS: NYSTATIN POWDER 100,000 UNITS/GM - 15 GM TOPICAL POWDER TP SCH (09:13)
[2018-03-25] MEDS: ESCITALOPRAM OXALATE 20 MG TABLET (FP) PO SCH (09:13)
--- NOTE | 2018-03-25 09:58 | PN ---
Progress Note (short form) - Note Progress Note: ID consult dictated Anorexia, nausea, RUQ pain, low grade fever, abnormal LFTs, lymphocytosis, thrombocytopenia loose BMs ? viral enterocolitits Will obtain stool notavirus, norovirus Blood c/s HIV test Observe off antibiotics GI follow up
--- NOTE | 2018-03-25 13:06 | CONS ---
DATE OF CONSULTATION: DATE OF DICTATION: 03/25/2018 HISTORY: The patient is a 27-year-old female with a history of Crohn disease and anxiety evaluated for low-grade fever. The patient was admitted to the hospital on March 20, 2018 with complaints of nausea for 1 week, lower abdominal pain, anorexia, and fever at home. The patient reported fever as high as 102 at home and had complained of right upper quadrant tenderness. She was admitted to the hospital where a CAT scan of the abdomen and pelvis was performed and was negative for acute pathology. Her course was complicated by one isolated low-grade temperature of 100.4. Now reports loose bowel movements. She states that she does get intermittent diarrhea secondary to her anxiety. She has a history of Crohn disease. Reports her last flare was in 2015. She was followed by Dr. Sanchez at [facility], however, has not been back since 2017 secondary to insurance issues. At the present time, she is awake and alert. She denies any abdominal pain. She continues to complain of nausea and anorexia. She had a loose bowel movement, which she described as nonbloody. She denies any high-grade fever or shaking chills. The patient lives at home. She is not presently working. She denies any ill contacts at home. Recent travel to the [facility] in January. No recent antibiotic therapy. The patient presented to [facility] 2 months ago with a similar clinical presentation. Reports no diagnosis was made. PAST MEDICAL HISTORY: Positive for Crohn disease, anxiety, polycystic ovaries. ALLERGIES: NORTRIPTYLINE and BENADRYL. MEDICATIONS: Include Lexapro, Xanax, Wellbutrin, Synthroid, metoprolol. SOCIAL HISTORY: Resides in the community with family members. Nonsmoker. Nondrinker. SYSTEMS REVIEW: Neurologic: No loss of consciousness, seizure activity, focal weakness. Cardiac: Negative chest pain or palpitations. Respiratory: Negative cough or sputum production. Gastrointestinal: As per HPI. Genitourinary: Negative for urinary tract infection. LABORATORY DATA: White count 9.1 with 23 neutrophils, 63 lymphocytes, 12 monocytes, hematocrit 37, platelets 78, creatinine 0.6, lipase 232. Total bilirubin 0.9, alkaline phosphatase 235, AST 183, ALT 197. Urinalysis 25 white cells. PHYSICAL EXAMINATION: General: She is awake and responsive. She is obese in no acute distress. Vital Signs: Temperature 98.4, blood pressure 118/65, pulse 107, respirations 18 per minute. HEENT: Sclerae anicteric. Heart: Sounds S1, S2. Lungs: Clear. Abdomen: Soft. No tenderness elicited. No mass, rebound, or rigidity. Extremities: Negative for edema. IMPRESSION: 1. Anorexia. 2. Nausea. 3. Right upper quadrant abdominal pain. 4. Low-grade fever. 5. Abnormal liver enzymes. 6. Lymphocytosis. 7. Thrombocytopenia. 8. Loose bowel movements. 9. Possible viral enterocolitis. PLAN: Workup unrevealing to date. Stool culture growing a nonlactose eyeglass frame truer. The final result is pending. Giardia and Cryptosporidium negative. Hepatitis serology secondary to positive hepatitis B surface antibody. We will obtain blood cultures. Await stool culture. Obtain stool for Norovirus and Rotavirus. Observe HIV testing for completeness. The patient gives consent. GI follow up. Observe off antibiotic therapy. Thank you for the kind referral. NATALIO HERNANDEZ M.D. [id number]
--- NOTE | 2018-03-25 13:09 | DS ---
Physical Exam: SUBJECTIVE: Patient seen and examined OBJECTIVE: Vital Signs Period Temp Pulse Resp BP Sys/Peterson Pulse Ox Last 24 Hr 98.4 F-99.6 F 104-108 18-18 98-128/54-65 94-95 PHYSICAL EXAM GENERAL: The patient is awake, alert, and fully oriented, in no acute distress. HEAD: Normal with no signs of trauma. EYES: PERRL, extraocular movements intact, sclera anicteric, conjunctiva clear. ENT: Ears normal, nares patent, oropharynx clear without exudates, moist mucous membranes. NECK: Trachea midline, full range of motion, supple. LUNGS: Breath sounds equal, clear to auscultation bilaterally, no wheezes, no crackles, no accessory muscle use. HEART: Regular rate and rhythm, S1, S2 without murmur, rub or gallop. ABDOMEN: Soft, nontender, nondistended, normoactive bowel sounds, no guarding, no rebound, no hepatosplenomegaly, no masses. EXTREMITIES: 2+ pulses, warm, well-perfused, no edema. NEUROLOGICAL: Cranial nerves II through XII grossly intact. Normal speech, gait not observed. PSYCH: Normal mood, normal affect. SKIN: Warm, dry, normal turgor, no rashes or lesions noted. LABS Laboratory Results - last 24 hr 03/25/18 03/25/18 07:30 07:30 WBC 9.1 RBC 4.27 Hgb 12.2 Hct 37.0 MCV 86.7 MCH 28.5 MCHC 32.9 RDW 13.7 Plt Count 78 L MPV 10.6 Sodium 137 Potassium 3.7 Chloride 101 Carbon Dioxide 27 Anion Gap 9 BUN 10 Creatinine 0.6 Creat Clearance w eGFR > 60 Random Glucose 96 Calcium 8.3 L Total Bilirubin 0.9 AST 183 H ALT 197 H Alkaline Phosphatase 235 H Total Protein 7.1 Albumin 3.0 L Microbiology 03/23/18 08:00 Stool Salmonella/Shigella Culture - Preliminary Non Lactose Fermenting Gnb Gram Negative Tucker 03/23/18 08:00 Stool Campylobacter Culture - Final NO GROWTH OF CAMPYLOBACTER SPECIES OBTAINED 03/23/18 08:00 Stool Yersinia Culture - Final NO GROWTH OF YERSINIA SPECIES OBTAINED 03/23/18 08:00 Stool Vibrio Culture - Final NO GROWTH OF VIBRIO SPECIES OBTAINED 03/23/18 08:00 Stool Escherichia coli 0157 Culture - Final NO GROWTH OF E COLI 0157 OBTAINED 03/23/18 08:00 Stool Gram Stain - Final, negative 03/23/18 08:00 Stool Cryptosporidium Antigen - Final, negative 03/23/18 08:00 Stool Giardia Antigen (DEBBIE) - Final, negative IMAGING Chest CT abdomen and pelvis with contrast no acute pathology, diffuse hepatic steatosis us of abd: diffuse hepatic steatosis, 0.5cm no cbd dilation EKG: nsr non specific t wave abnormality HOSPITAL COURSE: 1.GI Intractable N/V, viral - tolerated soft diet today. - treated with prn zofran and Transanimitis - likely secondary to viral vs fatty liver - Micro date neg thus far, no acute changes on CT scan - GI following and consulted (Dr Malik) - EBV pending - ID consulted and followed 2. Crohn's - Continue supportive care 3. Anxiety - Cont Lexapro, Xanax 4. Thrombocytopenia- ? viral etiology - Improved, LD elevated, however lfts high - Elevated retic, no overt bleeding seen - Hem note reviewed and appreciated PLAN - Discharged home with strict follow-up with primary care physician - Referral for gastroenterology was given to patient - Continue zofran for nausea - return precautions reviewed with patient Date of Admission:03/24/18 Date of Discharge: 03/25/18 Minutes to complete discharge: 45 Discharge Summary Reason For Visit: INFLAMATORY LIVER DISEASE Current Active Problems Hepatitis (Acute) Condition: Improved - Instructions Diet, Activity, Other Instructions: rest, continue small frequent amounts of foods throughout the day Referrals: Alonso Garcia MD [Staff Physician] - Khari Malik MD [Staff Physician] - Disposition: HOME - Home Medications Comprehensive Discharge Medication List: Ambulatory Orders Alprazolam [Xanax] 1 mg PO QID 03/21/18 Escitalopram Oxalate [Lexapro -] 40 mg PO DAILY 03/21/18 Loratadine [Claritin] 10 mg PO DAILY PRN 03/21/18 Ondansetron HCl [Zofran] 4 mg PO TID PRN 03/21/18 - Discharge Referral Referred to [facility] No
[2018-03-25 14:14] VITALS: BP 110/70; PULSE 105; TEMP 98.5
[2018-03-25 14:18] LABS: EPSTEIN BARR ANTIBODY IgM >160.0 U/mL (0.0-35.9)
== END 2018-03-25 14:15 | disposition home or self-care (01) ==
LOC: FER 18:00 → FM/S 22:21 → UNDOADMOB 22:21 → FM/S 23:16 → UNDOADMOB 23:16 → FM/S 03-22 12:51
PROVIDERS: ADMIT Internal Medicine; ATTEND Nurse Practitioner Family
PROC: 3E0333Z Introduction of Anti-inflammatory into Peripheral Vein, Percutaneous Approach (ICD-10-PCS; principal; 2018-03-24)
PROC: 3E033NZ Introduction of Analgesics, Hypnotics, Sedatives into Peripheral Vein, Percutaneous Approach (ICD-10-PCS; 2018-03-24)
PROC: 3E0337Z Introduction of Electrolytic and Water Balance Substance into Peripheral Vein, Percutaneous Approach (ICD-10-PCS; 2018-03-24)
PROC: 3E033GC Introduction of Other Therapeutic Substance into Peripheral Vein, Percutaneous Approach (ICD-10-PCS; 2018-03-24)
PROC: 3E023GC Introduction of Other Therapeutic Substance into Muscle, Percutaneous Approach (ICD-10-PCS; 2018-03-24)
DX: R11.2 Nausea with vomiting, unspecified (principal); R63.0 Anorexia; Z68.39 Body mass index [BMI] 39.0-39.9, adult; R50.9 Fever, unspecified; R94.5 Abnormal results of liver function studies; K50.90 Crohn's disease, unspecified, without complications; E87.6 Hypokalemia; F41.9 Anxiety disorder, unspecified; R74.0 Nonspecific elevation of levels of transaminase and lactic acid dehydrogenase [LDH]; D69.6 Thrombocytopenia, unspecified; D72.820 Lymphocytosis (symptomatic); R19.7 Diarrhea, unspecified; R10.10 Upper abdominal pain, unspecified
CPT/HCPCS: 36415; 74177-TC; 76705-TC; 80048; 80053; 80074; 80076; 81003; 81015; 82150; 82550; 82977; 83615; 83690; 83735; 84100; 84484; 84703; 85025; 85027; 85044; 85610; 86663; 86665; 86704; 86706; 86708; 87040; 87045; 87046; 87177; 87186; 87205; 87209; 87328; 87329; 87340; 87389; 87522; 96361; 96365; 96366; 96367; 96372; 96375; 96376; 99284-25; G0378; J3480; J7030

== ENCOUNTER 2018-04-10 16:11 | Emergency (ER) | payer OTHER ==
[2018-04-10 16:16] VITALS: BP 121/91; PULSE 88; TEMP 98; BMI 38.9
--- NOTE | 2018-04-10 16:21 | PDOC ---
Attending Attestation - Resident Resident Name: Bruce Estrada - ED Attending Attestation I have performed the following: I have examined & evaluated the patient, The case was reviewed & discussed with the resident, I agree w/resident's findings & plan, Exceptions are as noted - HPI HPI: 04/10/18 17:56 Patient diagnosed with mono approximately one week ago, with elevated liver enzymes. However, it is uncertain whether there was sore throat or lymphadenopathy, and therefore the diagnosis is somewhat in question. She complains of epigastric, left upper quadrant, and right upper quadrant pain since then. Worse today. Mild nausea, no vomiting, holding down by mouth food and fluids. Appetite, however, is poor. - Physicial Exam PE: 04/10/18 17:57 Physical exam: Afebrile, vital signs normal. No pallor or icterus. HEENT clear Neck supple without bruit mass or nodes Chest clear CV regular without murmur rub or gallop Abdomen nondistended, bowel sounds normal. Soft but with mild tenderness over the liver and the spleen. Liver and spleen margins are palpable at the costal margin. There is no guarding or rebound. No CVAT - Medical Decision Making 04/10/18 17:58 Assessment: Inflammation of the liver and spleen secondary to viral infection. No jaundice. Laboratory tests suggest infectious mononucleosis Plan: Antiemetic, pain medication as needed, follow up GI for further evaluation , diagnostic studies, and treatment.
[2018-04-10] MEDS ORDERED: ONDANSETRON 4 MG/2 ML VIAL IVPUSH ONE (16:23)
[2018-04-10] MEDS ORDERED: SODIUM CHLORIDE 0.9% 1000 ML INFUS.BAG IV ONE (16:25)
[2018-04-10] MEDS ORDERED: FAMOTIDINE 20 MG/50 ML IVPB 20 MG/50 ML MG IVPB ONE ×2 (16:30→16:41)
--- NOTE | 2018-04-10 16:37 | PDOC ---
History of Present Illness - General Chief Complaint: Pain Stated Complaint: upper abdominal pain and nausea Time Seen by Provider: 04/10/18 16:13 History Source: Patient Exam Limitations: No Limitations - History of Present Illness Initial Comments: 04/10/18 16:36 The patient is a 27F with a PMH of Crohns Dz, anxiety, hypothyroid, depression , PCOS who presents to the ER with complaints of abdominal pain. The patient states that she's had 5 days of worsening, dull, intermittent LUQ pain. The pain does not radiate but is also present in her epigastrium and RUQ. She states the pain is a 7-8/10. The pain is associated with nausea but no vomiting , fevers, chills, CP, SOB, or dysuria. Unsure of LMP. She denies any bloody vomitus or stool, as well as any melena. Past History - Past Medical History Allergies/Adverse Reactions: Allergies Allergy/AdvReac Type Severity Reaction Status Date / Time nortriptyline [Nortriptyline] AdvReac Intermediate Verified 04/10/18 16:12 diphenhydramine HCl AdvReac Verified 04/10/18 16:12 [From Benadryl] Home Medications: Ambulatory Orders Alprazolam [Xanax] 1 mg PO QID 03/21/18 Escitalopram Oxalate [Lexapro -] 40 mg PO DAILY 03/21/18 Loratadine [Claritin] 10 mg PO DAILY PRN 03/21/18 Ondansetron HCl [Zofran] 4 mg PO TID PRN #30 tablet 03/25/18 Ascorbate Calcium [Vitamin C] 500 mg PO DAILY 04/10/18 Anemia: No Asthma: No Cancer: No Cardiac Disorders: No CVA: No COPD: No CHF: No Dementia: No Diabetes: No GI Disorders: Yes (CROHNS, NAUSEA, GASTRIC POLYP) Disorders: No HTN: No Hypercholesterolemia: No Liver Disease: No Psychiatric Problems: Yes (Anxiety,depression,panic attacks) Seizures: No Thyroid Disease: No - Surgical History Abdominal Surgery: Yes (abdominal wall cyst removed) Appendectomy: No Cardiac Surgery: No Cholecystectomy: No Lung Surgery: No Neurologic Surgery: No Orthopedic Surgery: No - Immunization History Immunization Up to Date: Yes - Suicide/Smoking/Psychosocial Hx Smoking Status: No Smoking History: Never smoked Have you smoked in the past 12 months: No Number of Cigarettes Smoked Daily: 0 Hx Alcohol Use: Yes (occasional) Drug/Substance Use Hx: No Substance Use Type: None Hx Substance Use Treatment: No Review of Systems - Review of Systems Able to Perform ROS?: Yes Comments:: 04/10/18 16:50 GENERAL/CONSTITUTIONAL: No fever or chills. No weakness. HEAD, EYES, EARS, NOSE AND THROAT: No change in vision. No ear pain or discharge. No sore throat. CARDIOVASCULAR: No chest pain, palpitations, or lightheadedness. RESPIRATORY: No cough, wheezing, shortness of breath, or hemoptysis. GASTROINTESTINAL: Positive for nausea and abdominal pain. No vomiting, diarrhea , or constipation. GENITOURINARY: No dysuria, frequency, hematuria, or change in urination. MUSCULOSKELETAL: No joint or muscle swelling or pain. No neck or back pain. SKIN: No rash or lesions. NEUROLOGIC: No headache, numbness, tingling, focal weakness, loss of consciousness, or change in strength/sensation. ENDOCRINE: No increased thirst. No abnormal weight change. HEMATOLOGIC/LYMPHATIC: No anemia, easy bleeding, or history of blood clots. ALLERGIC/IMMUNOLOGIC: No hives or skin allergy. Is the patient limited [place] proficient: No *Physical Exam - Vital Signs Last Vital Signs Temp Pulse Resp BP Pulse Ox 98 F 88 18 121/91 8 L 04/10/18 16:12 04/10/18 16:12 04/10/18 16:12 04/10/18 16:12 04/10/18 16:12 - Physical Exam Comments: 04/10/18 16:51 GENERAL: Well developed, well nourished. Awake and alert. No acute distress. HEENT: Normocephalic, atraumatic. Hearing grossly normal. Moist mucous membranes. PERRLA, EOMI. No conjunctival pallor. Sclera are non-icteric. NECK: Supple. Full ROM. No JVD. CARDIOVASCULAR: Regular rate and rhythm. No murmurs, rubs, or gallops. PULMONARY: No evidence of respiratory distress. Lungs clear to auscultation bilaterally. No wheezing, rales or rhonchi. ABDOMINAL: Soft. TTP over LUQ, epigastrium, and RUQ. Positive Galaviz's sign. Hepatosplenomegaly appreciated. Non-distended. No rebound or guarding. GENITOURINARY: No CVA tenderness bilaterally. MUSCULOSKELETAL: Normal range of motion at all joints. No bony deformities or tenderness. EXTREMITIES: No cyanosis. No clubbing. No edema. No calf tenderness or swelling. SKIN: Warm and dry. Normal capillary refill. No rashes. No jaundice. NEUROLOGICAL: Alert, awake, appropriate. Cranial nerves 2-12 grossly intact. Normal speech. Gait is normal without ataxia. PSYCHIATRIC: Cooperative. Good eye contact. Appropriate mood and affect. ED Treatment Course - LABORATORY CBC & Chemistry Diagram: 04/10/18 16:55 04/10/18 16:55 - RADIOLOGY Radiology Studies Ordered: Category Date Time Status ABDOMEN US [US] Stat Ultrasound 04/10/18 16:24 Ordered Medical Decision Making - Medical Decision Making 04/10/18 16:55 The patient is a 27F with a PMH of Crohn's, recently diagnosed with [place] 1 week ago, who presents to the ER with abdominal pain with nausea. Concern for Crohn' s flare up, although lower likelihood due to lack of diarrhea/blood in stool. Hepatosplenomegaly appreciated on exam, therefore likely a sequelae of mono infection. Pending labs as pt was recently admitted for observation of liver enzymes. Will treat symptoms and reassess. 04/10/18 17:43 CBC WNL. UA negative. CMP pending. Pt states that she is still nauseous. Will give reglan and reassess. 04/10/18 18:03 Pt states she feels better. Will PO challenge and reassess. 04/10/18 18:36 Pt tolerated PO. Repeat abdominal exam demonstrated resolution in tenderness. I have instructed the pt to f/u with her PCP tomorrow. Pt understands and agrees to f/u. *DC/Admit/Observation/Transfer Diagnosis at time of Disposition: Abdominal pain Qualifiers: Abdominal location: left upper quadrant Qualified Code(s): R10.12 - Left upper quadrant pain - Discharge Dispostion Disposition: HOME Condition at time of disposition: Stable Decision to Admit order: No - Referrals - Patient Instructions Printed Discharge Instructions: Mononucleosis Additional Instructions: Please follow up with your primary care physician in 1-2 days. Please ask for a GI referral at that appointment. Please return to the ER if you have any signs or symptoms of chest pain, shortness of breath, uncontrollable fever, chills, nausea, vomiting, numbness, tingling, or weakness in any part of your body, changes in vision, or slurred speech. Please take your medications as prescribed. Please return to the ER if symptoms persist, worsen, or new symptoms arise. - Post Discharge Activity
[2018-04-10] MEDS ORDERED: ONDANSETRON 4 MG/2 ML VIAL ONE (16:41)
[2018-04-10 16:42] LABS: PH,URINE 8.5 (4.5-8); URINE APPEARANCE Clear; URINE BILIRUBIN Negative (NEGATIVE); URINE COLOR Yellow; URINE GLUCOSE (UA) Negative (NEGATIVE); URINE KETONE Negative (NEGATIVE); URINE LEUK ESTERASE TRACE (NEGATIVE); URINE NITRITE Negative (NEGATIVE); URINE PROTEIN Negative (NEGATIVE); URINE UROBILINOGEN 0.2 (0.2-1.0)
[2018-04-10 17:13] LABS: URINE BACTERIA NONE SEEN /hpf (NEGATIVE); URINE RBC 0-2 /hpf (0-3)
[2018-04-10 17:34] LABS: INR 1.15 (0.82-1.09); PROTHROMBIN TIME (PATIENT) 12.8 SEC (10.2-13.0)
[2018-04-10 17:35] LABS: BASO % 0.6 % (0-2.0); EOS % 0.3 % (0-4.5); HEMATOCRIT 39.8 % (32.4-45.2); MCH 27.7 pg (25.7-33.7); MCHC 32.7 g/dl (32.0-36.0); MEAN CELL VOLUME 84.7 fl (80-96); MEAN PLT VOLUME 7.7 fl (7.5-11.1); MONO % 15.2 % (3.8-10.2); NEUT % 31.9 % (42.8-82.8); PLATELET COUNT 228 K/MM3 (134-434); WHITE BLOOD COUNT 5.2 K/mm3 (4.0-10.8)
[2018-04-10 17:39] LABS: ALBUMIN 4.1 g/dl (3.5-5.0); ALK PHOS 87 U/L (32-92); ANION GAP 3 MMOL/L (8-16); BLOOD UREA NITROGEN 12 mg/dl (7-18); CALCIUM 9.1 mg/dl (8.4-10.2); CHLORIDE 103 mmol/L (98-107); CO2 24 mmol/L (22-28); CREATININE 0.7 mg/dl (0.6-1.3); GLUCOSE,RANDOM 92 mg/dl (74-106); SGOT/AST 58 U/L (10-42); SGPT/ALT 57 U/L (10-40); SODIUM 130 mmol/L (136-145); TOT PROT 7.9 g/dl (6.4-8.3)
[2018-04-10] MEDS ORDERED: METOCLOPRAMIDE HCL INJECTION 10 MG/2 ML VIAL ONE (17:41)
[2018-04-10] MEDS ORDERED: METOCLOPRAMIDE HCL INJECTION 10 MG/2 ML VIAL IVPB ONE (17:41)
[2018-04-10 17:44] LABS: POTASSIUM 4.4 mmol/L (3.5-5.1)
== END 2018-04-10 18:46 | disposition home or self-care (01) ==
LOC: FER 16:11
PROC: 3E0337Z Introduction of Electrolytic and Water Balance Substance into Peripheral Vein, Percutaneous Approach (ICD-10-PCS; principal; 2018-04-10)
PROC: 3E033GC Introduction of Other Therapeutic Substance into Peripheral Vein, Percutaneous Approach (ICD-10-PCS; 2018-04-10)
DX: R10.12 Left upper quadrant pain (principal)
CPT/HCPCS: 36415; 76700-TC; 80053; 81003; 81015; 83690; 84703; 85025; 85610; 96365; 96375; 99282-25; J7030

== ENCOUNTER 2021-07-30 11:13 | Emergency (ER) | payer OTHER ==
[2021-07-30 11:32] VITALS: BP 144/88; PULSE 110; TEMP 99; BMI 38.9
[2021-07-30] MEDS ORDERED: KETOROLAC TROMETHAMINE 30 MG/1 ML VIAL IM ONE (11:58)
== END 2021-07-30 13:03 | disposition home or self-care (01) ==
LOC: JER 11:13 → JERFT 11:13
PROC: 3E0233Z Introduction of Anti-inflammatory into Muscle, Percutaneous Approach (ICD-10-PCS; principal; 2021-07-30)
DX: M25.571 Pain in right ankle and joints of right foot (principal); M79.671 Pain in right foot
CPT/HCPCS: 73610-TC-RT-FY; 73630-TC-RT-FY; 96372; 99284-25